=== PATIENT | male | born 1950 ===

== ENCOUNTER 2020-04-03 10:46 | Outpatient (CLI) | payer OTHER | END 2020-04-03 10:47 | disposition short-term general hospital (02) | LOC: EMS 10:46 | PROVIDERS: ATTEND Surgery | DX: R07.9 Chest pain, unspecified (principal) | CPT/HCPCS: A0425; A0427 ==

== ENCOUNTER 2020-05-16 23:58 | Outpatient (CLI) | payer OTHER | END 2020-05-16 23:59 | disposition EMS.NT | LOC: EMS 23:58 | PROVIDERS: ATTEND Surgery | DX: R55 Syncope and collapse (principal); R51.9 Headache, unspecified ==